=== PATIENT | female | born 1995 | race Caucasian/White ===

== ENCOUNTER 2020-09-30 16:09 | Inpatient (IN) | payer OTHER ==
[~2020-09-30] VITALS: Ht 162.6 cm; Wt 85.3 kg
[2020-09-30 17:28] LABS: BILIRUBIN NEGATIVE (NEGATIVE); BLOOD 2+ Ery/uL (NEGATIVE); CLARITY CLEAR (CLEAR); COLOR YELLOW (YELLOW); GLUCOSE (U) NORMAL (NORMAL); LEUKOCYTES TRACE Leu/uL (NEGATIVE); NITRITE NEGATIVE (NEGATIVE); PROTEIN 2+ mg/dL (NEGATIVE); SPECIFIC GRAVITY 1.015 (1.001-1.030); UROBILINOGEN 0.2 mg/dL (0.2-1.0); pH 7.5 (5.0-9.0)
[2020-09-30 17:39] LABS: MARIJUANA (THC) NEGATIVE (NEGATIVE)
[2020-09-30 17:40] LABS: AMPHETAMINES NEGATIVE (NEGATIVE); BARBITURATES NEGATIVE (NEGATIVE); ECSTASY (MDMA) NEGATIVE (NEGATIVE); METHADONE NEGATIVE (NEGATIVE); OPIATES NEGATIVE (NEGATIVE); OXYCODONE NEGATIVE (NEGATIVE)
[2020-09-30 17:45] LABS: HCT 31.4 % (37.0-47.0); HGB 10.5 g/dl (12.5-16.0); MCH 29.1 pg (25.0-31.0); MCHC 33.4 g/dL (32.0-36.0); MPV 11.7 fL (6.0-9.5); RBC 3.61 M/uL (4.20-5.40); RDW 13.7 % (11.5-14.0); WBC 9.5 K/uL (4.0-10.5)
[2020-09-30 17:55] LABS: ALBUMIN 2.5 g/dL (3.4-5.0); BILIRUBIN - TOTAL 0.3 mg/dL (0.2-1.0); BUN/CREAT RATIO (CALC) 6.8 RATIO; CREATININE 0.44 mg/dL (0.51-0.95); POTASSIUM 3.5 mmol/L (3.5-5.1); TOTAL PROTEIN 6.5 g/dL (6.4-8.2)
[2020-09-30 17:58] LABS: URINARY RBC 20-50; URINARY WBC RARE
[2020-09-30 17:59] LABS: BACTERIA 1+
[2020-10-01 06:04] LABS: HCT 29.3 % (37.0-47.0); MCH 29.7 pg (25.0-31.0); MCHC 34.1 g/dL (32.0-36.0); MCV 86.9 fL (78.0-100.0); MPV 11.2 fL (6.0-9.5); RBC 3.37 M/uL (4.20-5.40); RDW 13.8 % (11.5-14.0); WBC 11.6 K/uL (4.0-10.5)
== END 2020-10-02 17:40 | disposition home or self-care (01) | DRG 806 ==
LOC: FOD 16:09 → FOB 16:10 → FOD 17:47 → FOB 17:48
PROVIDERS: ADMIT Specialist
PROC: 10E0XZZ Delivery of Products of Conception, External Approach (ICD-10-PCS; principal; 2020-09-30)
DX: O99.02 Anemia complicating childbirth (principal); D62 Acute posthemorrhagic anemia; Z37.0 Single live birth; O99.52 Diseases of the respiratory system complicating childbirth; J45.909 Unspecified asthma, uncomplicated; Z20.822 Contact with and (suspected) exposure to COVID-19; Z3A.37 37 weeks gestation of pregnancy; O99.214 Obesity complicating childbirth; O99.344 Other mental disorders complicating childbirth; F32.9 Major depressive disorder, single episode, unspecified; F41.9 Anxiety disorder, unspecified
CPT/HCPCS: 36415; 80053; 80305; 81001; 84112; 86850; 86900; 86901; J2540; J7120; U0002